=== PATIENT | male | born 1990 | race Caucasian/White ===

== ENCOUNTER 2022-06-02 04:04 | Emergency (ER) | payer SELFPAY ==
[~2022-06-02] VITALS: Ht 182.9 cm; Wt 113.4 kg
[2022-06-02 04:10] VITALS: BP 136/72
--- NOTE | 2022-06-02 04:10 | NUR ---
TO BED AMBULATORY
--- NOTE | 2022-06-02 04:43 | NUR ---
Patient states, "I have an ingrown nail and I walk a lot at work. It's gotten worse over the last few days. It's about a 3/10 right now but it hurts when I walk on it." Patient's left great toe is swollen and red, no drainage and no open wound. Patient is resting comfortably in bed, no c/o pain or s/s of distress.
--- NOTE | 2022-06-02 06:20 | NUR ---
ER physician assessing patient.
--- NOTE | 2022-06-02 06:20 | NUR ---
ER physician performed I&D. ER physician educated patient on need to perform betadine soak daily. Patient verbalized understanding of education, no further questions.
--- NOTE | 2022-06-02 06:44 | NUR ---
Gera mares in ED - 06/02/22 at 0721 by [id number] ER physician performed I&D. ER physician educated patient on need to perform betadine soak daily. Patient verbalized understanding of education, no further questions.
--- NOTE | 2022-06-02 06:47 | NUR ---
Patient currently soaking left foot in betadine. Patient resting comfortably in bed, no c/o pain or s/s of discomfort.
[2022-06-02] MEDS ORDERED: LIDOCAINE MPF 1% 10 MG/ML VIAL INJ ONE (07:00)
[2022-06-02] MEDS ORDERED: DOXY-487 PO (07:02)
[2022-06-02] MEDS ORDERED: BACITRACIN OINT 500 UNITS/GM PKT TP ONE ×2 (07:10→07:12)
--- NOTE | 2022-06-02 07:19 | NUR ---
Bacitracin applied to patient's left great toe, and patient's left great toe covered by ANGELINA Fink. Patient skin intact, no c/o pain or s/s of discomfort.
[2022-06-02 07:44] VITALS: BP 120/75
== END 2022-06-02 07:32 | disposition home or self-care (01) ==
LOC: MED 04:04 → EDSEX 04:04 → MED 07:32
DX: L03.032 Cellulitis of left toe (principal); Z72.89 Other problems related to lifestyle
CPT/HCPCS: 11730; 99284